=== PATIENT | male | born 1935 | race Caucasian/White ===

== ENCOUNTER 2018-04-19 07:03 | Day surgery (SDC) | payer MEDICARE, MEDICAID ==
[2018-04-11 14:16] LABS: BASOPHILS % (AUTO) 0.5 % (0-1); EOSINOPHILS # (AUTO) 0.2 X10'3 (0-0.9); EOSINOPHILS % (AUTO) 2.8 % (0-6); LYMPHOCYTES # (AUTO) 1.9 X10'3 (1.1-4.8); LYMPHOCYTES % (AUTO) 23.4 % (21-51); MEAN PLATELET VOLUME 9.9 FL (7.4-10.4); MONOCYTES # (AUTO) 0.7 X10'3 (0-0.9); MONOCYTES % (AUTO) 9.1 % (2-12); NEUTROPHILS # (AUTO) 5.1 X10'3 (1.8-7.7); NEUTROPHILS % (AUTO) 64.2 % (42-75); PRE OP HEMATOCRIT 42.3 % (42.0-52.0); PRE OP HEMOGLOBIN 14.4 g/dL (14.0-17.9); PRE OP PLATELET COUNT 219 X10'3 (140-440); RED BLOOD COUNT 4.23 X10'6 (4.70-6.10); RED CELL DISTRIBUTION WIDTH 13.4 % (11.5-14.5)
[2018-04-11 14:19] LABS: HEMOGLOBIN A1C 8.3 % (4.5-6.2)
[2018-04-11 14:24] LABS: ALBUMIN 3.6 G/DL (3.4-5.0); ALKALINE PHOSPHATASE 70 IU/L (46-116); BLOOD UREA NITROGEN 49 MG/DL (7-18); BUN/CREATININE RATIO 20.9 (5.4-32.0); CALCIUM 8.6 MG/DL (8.5-10.1); CHLORIDE 104 MMOL/L (99-107); CREATININE 2.34 MG/DL (0.60-1.10); PRE OP ALT 44 U/L (30-65); PRE OP ANION GAP 11 (8-16); PRE OP AST 28 U/L (10-37); PRE OP BILIRUB, TOTAL 0.6 MG/DL (0.0-1.0); PRE OP GLUCOSE 136 MG/DL (70-104); PRE OP POTASSIUM 3.6 MMOL/L (3.4-5.1); PRE OP SODIUM 141 MMOL/L (135-145); TOTAL CARBON DIOXIDE 25.7 MMOL/L (24-32); TOTAL PROTEIN 7.2 G/DL (6.4-8.2); eGFR 27 ML/MIN
[2018-04-11 14:29] LABS: PRE OP INR 1.2 INR; PRE OP PROTIME 11.6 SECONDS (9.0-12.0)
[~2018-04-19] VITALS: Ht 170.2 cm; Wt 108.9 kg
[~2018-04-19 07:03] MED LIST: AMIO200T27 PO; APIX5TAB3 PO; ATOR40TA PO; CARV-50 PO; DOCUMENT DATE & TIME OF BETA-BLOCKER PO ONE; LISI40TA4 PO; METF-436 PO; TRIA1TAB5 PO; ceFAZolin inj. 2,000 MG in dextrose 5%-water 100 ML IV ONE; famotidine 20mg tablet PO ONE; ringers solution, lacted 1,000 ML IV SCH
[2018-04-19] MEDS ORDERED: LIDOcaine 1% (10mg/ml) 2ml vial ONE (07:57)
[2018-04-19 08:22] VITALS: BP 158/43
[2018-04-19 08:25] VITALS: BP 158/76
[2018-04-19] MEDS ORDERED: LIDOcaine 0.5% (5mg/ml) 50ml vial ONE (08:50)
[2018-04-19] MEDS ORDERED: BUPIVAcaine/PF 2.5mg/ml (0.25%) 10ml vial ONE (09:31)
[2018-04-19] MEDS ORDERED: midazolam 2 mg/2 ml injection ONE (09:40)
[2018-04-19] MEDS ORDERED: fentaNYL/PF 50MCG/1 ML 2ML syringe ONE (09:40)
[2018-04-19 10:10] VITALS: BP 123/56
--- NOTE | 2018-04-19 10:10 | NUR ---
Received from OR via BED, accompanied by Anesthesiologist DR SINCLAIR and report given by Anesthesiolgist. PATIENT A&OX4, DENIES PAIN, V/S WNL, NEUROVASCULAR CHECKS INTACT, 20G PIV LUE, SCD ON, DRESSING TO RIGHT WRIST CDI ELEVATED WITH ICEBAG APPLIED.
[2018-04-19 10:20] VITALS: BP 122/63
[2018-04-19 10:30] VITALS: BP 109/53
[2018-04-19 10:40] VITALS: BP 101/56
--- NOTE | 2018-04-19 10:40 | NUR ---
PATIENT A&OX4, DENIES PAIN, V/S WNL, NEUROVASCULAR CHECKS INTACT, 20G PIV LUE D/C, SCD OFF, DRESSING TO RIGHT WRIST CDI ELEVATED WITH ICEBAG APPLIED. I HAVE REVIEWED D/C INSTRUCTIONS WITH PATIENT AND FAMILY AND THEY HAVE VERBALIZED UNDERSTANDING. PATIENT D/C HOME WITH ALL BELONGINGS AND FAMILY GAVE TRANSPORT HOME.
== END 2018-04-19 10:40 | disposition home or self-care (01) ==
LOC: PAS 07:03
PROVIDERS: ATTEND Orthopaedic Surgery Hand Surgery
DX: G56.03 Carpal tunnel syndrome, bilateral upper limbs (principal); E11.9 Type 2 diabetes mellitus without complications; Z79.899 Other long term (current) drug therapy; Z96.659 Presence of unspecified artificial knee joint; Z95.5 Presence of coronary angioplasty implant and graft; Z79.84 Long term (current) use of oral hypoglycemic drugs
CPT/HCPCS: 36415; 64721; 80053; 82948; 83036; 85025; 85610; 85730; A6222; J0690; J2001; J2250; J3010; J3490; J7060; J7120

== ENCOUNTER 2023-12-31 12:03 | Inpatient (IN) | payer MEDICARE, MEDICAID ==
[~2023-12-31] VITALS: Ht 167.6 cm; Wt 98.7 kg
[~2023-12-31 12:03] MED LIST changes: +AMI200T PO; -AMIO200T27 PO; +ASPI81TA53 PO; -CARV-50 PO; +CARV3.122 PO; +CHOL100017; +CYAN500T71 PO; +DOCU100C40 PO; -DOCUMENT DATE & TIME OF BETA-BLOCKER PO ONE; +FERR325T29 PO; +GLUCOSAMINE; +HYDR-3972 PO; -LISI40TA4 PO; -METF-436 PO; +MULTIVITAMIN; -TRIA1TAB5 PO; -ceFAZolin inj. 2,000 MG in dextrose 5%-water 100 ML IV ONE; -famotidine 20mg tablet PO ONE; -ringers solution, lacted 1,000 ML IV SCH
[2023-12-31 12:46] LABS: BASOPHILS % (AUTO) 0.2 % (0-1); EOSINOPHILS % (AUTO) 0 % (0-6); HEMATOCRIT 25.6 % (42.0-52.0); HEMOGLOBIN 8.4 g/dl (14.0-17.9); LYMPHOCYTES # (AUTO) 1.5 X10'3 (1.1-4.8); LYMPHOCYTES % (AUTO) 13.5 % (21-51); MEAN CORPUSCULAR HEMOGLOBIN 34.2 PG (27.0-31.0); MEAN CORPUSCULAR HGB CONC 32.9 g/dL (33.0-36.5); MEAN CORPUSCULAR VOLUME 103.9 FL (78-98); MEAN PLATELET VOLUME 8.9 FL (7.4-10.4); MONOCYTES # (AUTO) 0.9 X10'3 (0-0.9); MONOCYTES % (AUTO) 8.2 % (2-12); NEUTROPHILS # (AUTO) 8.5 X10'3 (1.8-7.7); NEUTROPHILS % (AUTO) 78.1 % (42-75); PLATELET COUNT 248 X10'3 (140-440); RED BLOOD COUNT 2.46 X10'6 (4.70-6.10); RED CELL DISTRIBUTION WIDTH 20.8 % (11.5-14.5); WHITE BLOOD COUNT 10.9 X10'3 (4.5-11.0)
[2023-12-31 13:04] LABS: ALANINE AMINOTRANSFERASE 11 U/L (12-78); ALBUMIN 2.8 G/DL (3.4-5.0); ALBUMIN/GLOBULIN RATIO 0.9 (1.1-1.5); ALKALINE PHOSPHATASE 102 IU/L (46-116); ANION GAP 11 (8-16); ASPARTATE AMINO TRANSFERASE 26 U/L (10-37); BILIRUBIN,TOTAL 1.6 MG/DL (0.1-1.0); BLOOD UREA NITROGEN 32 MG/DL (7-18); BUN/CREATININE RATIO 17.2 (10.0-20.0); CALCIUM 8.3 MG/DL (8.5-10.1); CHLORIDE 104 MMOL/L (99-107); CREATININE 1.86 MG/DL (0.60-1.10); GLUCOSE 112 MG/DL (70-104); POTASSIUM 3.9 MMOL/L (3.5-5.1); SODIUM 139 MMOL/L (135-145); TOTAL CARBON DIOXIDE 23.9 MMOL/L (24-32); TOTAL PROTEIN 5.9 G/DL (6.4-8.2); eCRCL 25 ML/MIN; eGFR 34 ML/MIN
[2023-12-31 13:07] LABS: PLATELET ESTIMATE NORMAL
[2023-12-31 13:08] LABS: ACANTHOCYTES FEW; ANISOCYTOSIS 3+; BURR CELLS FEW; HYPOCHROMASIA 1+; POLYCHROMASIA FEW; TARGET CELLS FEW
[2023-12-31 13:14] LABS: PRO BRAIN NATRIURETIC PEPTIDE 1533 PG/ML (0-450)
[2023-12-31] MEDS ORDERED: HYDROcodone/acetaminophen 10/325mg tab PO PRN (17:40)
[2023-12-31] MEDS ORDERED: potassium Cl 20 mEq SR tablet PO PRN (17:40)
[2023-12-31] MEDS ORDERED: normal saline 1000ml 1,000 ML IV ONE (17:40)
[2023-12-31] MEDS ORDERED: ondansetron/PF 4mg/2ml inj IV PRN (17:40)
[2023-12-31] MEDS ORDERED: normal saline 1000ml 1,000 ML IV SCH (17:40)
[2023-12-31] MEDS ORDERED: magnesium sulf-water 2g/50mL 50 ML IV PRN (17:40)
[2023-12-31] MEDS ORDERED: bisacodyl 10mg suppository rectal RC PRN (17:40)
[2023-12-31] MEDS ORDERED: HYDROcodone/acetaminophen 5mg/325mg tablet PO PRN (17:40)
[2023-12-31] MEDS ORDERED: potassium Cl 40MEQ/1/2NS 520ml 520 ML IV PRN (17:40)
[2023-12-31] MEDS ORDERED: mag hydrox/Alum hydrox/simeth 30ml oral suspension PO PRN (17:40)
[2023-12-31] MEDS ORDERED: acetaminophen 325mg tablet PO PRN (17:40)
[2023-12-31] MEDS ORDERED: magnesium sulf-water 4G/100mL 100 ML IV PRN (17:40)
[2023-12-31 18:24] LABS: HEMATOCRIT 23.7 % (42.0-52.0); HEMOGLOBIN 7.8 g/dl (14.0-17.9); MEAN CORPUSCULAR HEMOGLOBIN 34.2 PG (27.0-31.0); MEAN CORPUSCULAR VOLUME 103.7 FL (78-98); MEAN PLATELET VOLUME 8.4 FL (7.4-10.4); PLATELET COUNT 237 X10'3 (140-440); RED BLOOD COUNT 2.29 X10'6 (4.70-6.10); WHITE BLOOD COUNT 11.2 X10'3 (4.5-11.0)
[2023-12-31] MEDS ORDERED: glucagon, human recombinant 1mg kit SUBCUT PRN (18:45)
[2023-12-31] MEDS ORDERED: DEXTROSE 15 GM of carb/4 tabs (each vial/BOTTLE has 4 tablets) PO PRN ×2 (18:45)
[2023-12-31] MEDS ORDERED: dextrose 50%-water 50ml dispensing syringe IV PRN ×2 (18:45)
[2023-12-31 20:00] VITALS: BP_SYST 129; BP_SYST 136; BP_DIAS 48; BP_DIAS 52; PULSE 65; PULSE 73
[2023-12-31] MEDS: K and/or MAG REPLACEMENT MC SCH (20:00)
[2023-12-31] MEDS: INSULIN LISPRO 100 UNIT/ML INSULN.PEN MULTI-DOSE SQ SCH (21:00)
[2023-12-31 21:25] VITALS: BP 137/56; PULSE 68; RESP 16; TEMP 97.9; O2SAT 96
[2023-12-31 22:00] VITALS: BP 131/52; PULSE 65; RESP 13; RESP 14; TEMP 97.9; O2SAT 97
[2023-12-31] MEDS: docusate sod 100mg capsule PO SCH (22:12)
[2023-12-31 22:34] VITALS: BP 131/52; PULSE 65; RESP 14; TEMP 97.9
[2023-12-31 23:00] VITALS: BP 133/55; PULSE 64; RESP 23; TEMP 97.7
[2023-12-31] MEDS ORDERED: FURO20TA4 PO (23:34)
[2023-12-31] MEDS ORDERED: TRIA1TAB5 PO (23:34)
[2024-01-01] VITALS (13 sets, daily range): BP systolic 120–147; BP diastolic 45–73; PULSE 60–76; RESP 13–18; TEMP 97.5–98.4; O2SAT 95–99
[2024-01-01] MEDS ORDERED: EMPA25TA PO (01:59)
[2024-01-01 03:42] LABS: HEMATOCRIT 27.8 % (42.0-52.0); HEMOGLOBIN 9.2 g/dl (14.0-17.9); MEAN CORPUSCULAR HEMOGLOBIN 33.5 PG (27.0-31.0); MEAN CORPUSCULAR HGB CONC 32.9 g/dL (33.0-36.5); MEAN CORPUSCULAR VOLUME 101.6 FL (78-98); MEAN PLATELET VOLUME 8.1 FL (7.4-10.4); PLATELET COUNT 223 X10'3 (140-440); RED BLOOD COUNT 2.74 X10'6 (4.70-6.10); RED CELL DISTRIBUTION WIDTH 21.6 % (11.5-14.5); WHITE BLOOD COUNT 10.5 X10'3 (4.5-11.0)
[2024-01-01 03:58] LABS: ALANINE AMINOTRANSFERASE 17 U/L (12-78); ALBUMIN 2.7 G/DL (3.4-5.0); ALBUMIN/GLOBULIN RATIO 0.9 (1.1-1.5); ALKALINE PHOSPHATASE 103 IU/L (46-116); ANION GAP 8 (8-16); ASPARTATE AMINO TRANSFERASE 24 U/L (10-37); BILIRUBIN,TOTAL 1.6 MG/DL (0.1-1.0); BLOOD UREA NITROGEN 31 MG/DL (7-18); BUN/CREATININE RATIO 18.8 (10.0-20.0); CALCIUM 8.2 MG/DL (8.5-10.1); CHLORIDE 106 MMOL/L (99-107); CREATININE 1.65 MG/DL (0.60-1.10); GLUCOSE 86 MG/DL (70-104); MAGNESIUM 2.1 MG/DL (1.5-2.4); POTASSIUM 3.8 MMOL/L (3.5-5.1); SODIUM 140 MMOL/L (135-145); TOTAL CARBON DIOXIDE 25.7 MMOL/L (24-32); TOTAL PROTEIN 5.8 G/DL (6.4-8.2); eCRCL 28 ML/MIN; eGFR 40 ML/MIN
[2024-01-01 10:25] LABS: HEMATOCRIT 28.2 % (42.0-52.0); HEMOGLOBIN 9.4 g/dl (14.0-17.9); MEAN CORPUSCULAR HEMOGLOBIN 33.9 PG (27.0-31.0); MEAN CORPUSCULAR HGB CONC 33.4 g/dL (33.0-36.5); MEAN CORPUSCULAR VOLUME 101.6 FL (78-98); MEAN PLATELET VOLUME 8.6 FL (7.4-10.4); PLATELET COUNT 235 X10'3 (140-440); RED BLOOD COUNT 2.78 X10'6 (4.70-6.10); RED CELL DISTRIBUTION WIDTH 22.6 % (11.5-14.5); WHITE BLOOD COUNT 10.2 X10'3 (4.5-11.0)
[2024-01-01 14:14] LABS: BASOPHILS # (AUTO) 0.1 X10'3 (0-0.2); BASOPHILS % (AUTO) 0.7 % (0-1); EOSINOPHILS % (AUTO) 0.4 % (0-6); HEMATOCRIT 29.1 % (42.0-52.0); HEMOGLOBIN 9.6 g/dl (14.0-17.9); LYMPHOCYTES # (AUTO) 1.2 X10'3 (1.1-4.8); LYMPHOCYTES % (AUTO) 12.9 % (21-51); MEAN CORPUSCULAR HEMOGLOBIN 33.4 PG (27.0-31.0); MEAN CORPUSCULAR HGB CONC 32.9 g/dL (33.0-36.5); MEAN CORPUSCULAR VOLUME 101.5 FL (78-98); MEAN PLATELET VOLUME 8.6 FL (7.4-10.4); MONOCYTES # (AUTO) 1.1 X10'3 (0-0.9); MONOCYTES % (AUTO) 11.9 % (2-12); NEUTROPHILS # (AUTO) 7.1 X10'3 (1.8-7.7); NEUTROPHILS % (AUTO) 74.1 % (42-75); PLATELET COUNT 243 X10'3 (140-440); RED BLOOD COUNT 2.86 X10'6 (4.70-6.10); WHITE BLOOD COUNT 9.5 X10'3 (4.5-11.0)
[2024-01-01 14:17] LABS: GLUCOSE,BODY FLUID 121 MG/DL; LDH,BODY FLUID 195 U/L; TOTAL PROTEIN,BODY FLUID 2.9 G/DL
[2024-01-01 14:23] LABS: BFSOURCE LEFT PLEURAL FLD
[2024-01-01] MEDS ORDERED: docusate sod 100mg capsule PO PRN (14:35)
[2024-01-01 15:01] LABS: BF WBC COUNT 1125 /CU MM (0-1000); BFAPPEAR BLOODY; BFCOLOR RED; BFSOURCE LEFT PLEURAL FLD; BFVOLUME 22 ML
[2024-01-01 15:02] LABS: BF MESOTHELIAL CELLS FEW; BF RBC COUNT 437500 /CU MM; LYMPHOCYTES,BODY FLUID 68 %; MONOCYTES,BODY FLUID 10 %; NEUTROPHILS,BODY FLUID 22 %
[2024-01-01 15:05] LABS: ACANTHOCYTES FEW; ANISOCYTOSIS 3+; ELLIPTOCYTES FEW; PLATELET ESTIMATE NORMAL; TOTAL CELLS COUNTED 100
[2024-01-01 15:06] LABS: HYPERSEGMENTED NEUTROPHILS 2+; POLYCHROMASIA FEW; STOMATOCYTES 1+
[2024-01-01] MEDS: amiodarone 200mg tablet PO SCH (16:41)
[2024-01-01] MEDS ORDERED: POTA-192 PO (17:35)
[2024-01-01 18:28] LABS: HEMATOCRIT 27.9 % (42.0-52.0); HEMOGLOBIN 9.2 g/dl (14.0-17.9); MEAN CORPUSCULAR HEMOGLOBIN 33.5 PG (27.0-31.0); MEAN CORPUSCULAR HGB CONC 32.9 g/dL (33.0-36.5); MEAN CORPUSCULAR VOLUME 101.9 FL (78-98); MEAN PLATELET VOLUME 8.4 FL (7.4-10.4); PLATELET COUNT 229 X10'3 (140-440); RED BLOOD COUNT 2.74 X10'6 (4.70-6.10); RED CELL DISTRIBUTION WIDTH 22.4 % (11.5-14.5); WHITE BLOOD COUNT 10.6 X10'3 (4.5-11.0)
[2024-01-01] MEDS: carVEDilol 3.125mg tablet PO SCH (20:21)
[2024-01-01] MEDS: acetaminophen 325mg tablet PO PRN (22:23)
[2024-01-02] VITALS (8 sets, daily range): BP systolic 102–166; BP diastolic 50–71; PULSE 60–72; RESP 12–22; TEMP 96.8–98.5; O2SAT 95–99
[2024-01-02 02:31] LABS: ALANINE AMINOTRANSFERASE 22 U/L (12-78); ALBUMIN 2.8 G/DL (3.4-5.0); ALBUMIN/GLOBULIN RATIO 0.8 (1.1-1.5); ALKALINE PHOSPHATASE 114 IU/L (46-116); ANION GAP 9 (8-16); ASPARTATE AMINO TRANSFERASE 27 U/L (10-37); BILIRUBIN,TOTAL 1.1 MG/DL (0.1-1.0); BLOOD UREA NITROGEN 25 MG/DL (7-18); BUN/CREATININE RATIO 18.1 (10.0-20.0); CALCIUM 8.2 MG/DL (8.5-10.1); CHLORIDE 107 MMOL/L (99-107); CREATININE 1.38 MG/DL (0.60-1.10); GLUCOSE 117 MG/DL (70-104); MAGNESIUM 2.1 MG/DL (1.5-2.4); POTASSIUM 3.5 MMOL/L (3.5-5.1); SODIUM 140 MMOL/L (135-145); TOTAL CARBON DIOXIDE 24.5 MMOL/L (24-32); TOTAL PROTEIN 6.1 G/DL (6.4-8.2); eCRCL 33 ML/MIN; eGFR 49 ML/MIN
[2024-01-02 02:43] LABS: HEMATOCRIT 28.4 % (42.0-52.0); HEMOGLOBIN 9.3 g/dl (14.0-17.9); MEAN CORPUSCULAR HEMOGLOBIN 33.4 PG (27.0-31.0); MEAN CORPUSCULAR HGB CONC 32.9 g/dL (33.0-36.5); MEAN CORPUSCULAR VOLUME 101.6 FL (78-98); MEAN PLATELET VOLUME 8.9 FL (7.4-10.4); PLATELET COUNT 229 X10'3 (140-440); RED CELL DISTRIBUTION WIDTH 21.8 % (11.5-14.5); WHITE BLOOD COUNT 9.5 X10'3 (4.5-11.0)
[2024-01-02] MEDS: atorvastatin 20mg tablet PO SCH (08:16)
[2024-01-02] MEDS: aspirin 81mg tab.chew PO SCH (08:16)
[2024-01-02 11:42] LABS: HEMOGLOBIN 9.7 g/dl (14.0-17.9); MEAN CORPUSCULAR HGB CONC 33.4 g/dL (33.0-36.5); MEAN CORPUSCULAR VOLUME 101.9 FL (78-98); MEAN PLATELET VOLUME 8.5 FL (7.4-10.4); PLATELET COUNT 229 X10'3 (140-440); RED BLOOD COUNT 2.85 X10'6 (4.70-6.10); RED CELL DISTRIBUTION WIDTH 21.5 % (11.5-14.5); WHITE BLOOD COUNT 8.3 X10'3 (4.5-11.0)
[2024-01-02] MEDS: ferrous sulfate 325mg tablet PO SCH (15:49)
[2024-01-02 18:14] LABS: HEMOGLOBIN 9.2 g/dl (14.0-17.9); MEAN CORPUSCULAR HEMOGLOBIN 33.8 PG (27.0-31.0); MEAN CORPUSCULAR HGB CONC 32.8 g/dL (33.0-36.5); MEAN CORPUSCULAR VOLUME 103.2 FL (78-98); MEAN PLATELET VOLUME 8.3 FL (7.4-10.4); PLATELET COUNT 226 X10'3 (140-440); RED BLOOD COUNT 2.71 X10'6 (4.70-6.10); RED CELL DISTRIBUTION WIDTH 21.4 % (11.5-14.5); WHITE BLOOD COUNT 8.1 X10'3 (4.5-11.0)
[2024-01-03 02:00] VITALS: BP 127/79; PULSE 75; RESP 16; TEMP 96.6; O2SAT 98
[2024-01-03 02:49] LABS: HEMATOCRIT 28.5 % (42.0-52.0); HEMOGLOBIN 9.2 g/dl (14.0-17.9); MEAN CORPUSCULAR HEMOGLOBIN 33.1 PG (27.0-31.0); MEAN CORPUSCULAR HGB CONC 32.1 g/dL (33.0-36.5); MEAN CORPUSCULAR VOLUME 103.1 FL (78-98); MEAN PLATELET VOLUME 8.7 FL (7.4-10.4); PLATELET COUNT 218 X10'3 (140-440); RED BLOOD COUNT 2.77 X10'6 (4.70-6.10); RED CELL DISTRIBUTION WIDTH 21.7 % (11.5-14.5); WHITE BLOOD COUNT 7.9 X10'3 (4.5-11.0)
[2024-01-03 02:56] LABS: ALANINE AMINOTRANSFERASE 18 U/L (12-78); ALBUMIN 2.8 G/DL (3.4-5.0); ALBUMIN/GLOBULIN RATIO 0.9 (1.1-1.5); ALKALINE PHOSPHATASE 116 IU/L (46-116); ANION GAP 7 (8-16); ASPARTATE AMINO TRANSFERASE 27 U/L (10-37); BILIRUBIN,TOTAL 1.2 MG/DL (0.1-1.0); BLOOD UREA NITROGEN 18 MG/DL (7-18); BUN/CREATININE RATIO 16.8 (10.0-20.0); CALCIUM 8.4 MG/DL (8.5-10.1); CHLORIDE 107 MMOL/L (99-107); CREATININE 1.07 MG/DL (0.60-1.10); GLUCOSE 90 MG/DL (70-104); MAGNESIUM 1.9 MG/DL (1.5-2.4); POTASSIUM 3.3 MMOL/L (3.5-5.1); SODIUM 141 MMOL/L (135-145); TOTAL CARBON DIOXIDE 26.8 MMOL/L (24-32); TOTAL PROTEIN 5.9 G/DL (6.4-8.2); eCRCL 43 ML/MIN; eGFR 65 ML/MIN
[2024-01-03] MEDS: potassium Cl 20 mEq SR tablet PO PRN (07:48)
[2024-01-03 08:00] VITALS: RESP 20; O2SAT 97
[2024-01-03 10:00] VITALS: BP 117/57; PULSE 64; RESP 20; O2SAT 97
[2024-01-03 10:08] LABS: HEMATOCRIT 28.8 % (42.0-52.0); HEMOGLOBIN 9.4 g/dl (14.0-17.9); MEAN CORPUSCULAR HEMOGLOBIN 33.8 PG (27.0-31.0); MEAN CORPUSCULAR HGB CONC 32.7 g/dL (33.0-36.5); MEAN CORPUSCULAR VOLUME 103.4 FL (78-98); MEAN PLATELET VOLUME 8.3 FL (7.4-10.4); PLATELET COUNT 221 X10'3 (140-440); RED BLOOD COUNT 2.78 X10'6 (4.70-6.10); RED CELL DISTRIBUTION WIDTH 21.1 % (11.5-14.5); WHITE BLOOD COUNT 7.5 X10'3 (4.5-11.0)
[2024-01-03] MEDS: FLU VACC TS2024-25(6MOS UP)/PF 45 MCG/0.5 ML SYRINGE IMVAC ONE (13:15)
== END 2024-01-03 13:05 | disposition home or self-care (01) | DRG 981 ==
LOC: ER 12:04 → PCU 3S 17:46
PROVIDERS: ADMIT Family Medicine; ATTEND Family Medicine
PROC: 30233N1 Transfusion of Nonautologous Red Blood Cells into Peripheral Vein, Percutaneous Approach (ICD-10-PCS; principal; 2023-12-31)
PROC: 0W9B4ZZ Drainage of Left Pleural Cavity, Percutaneous Endoscopic Approach (ICD-10-PCS; 2024-01-01)
PROC: 3E02340 Introduction of Influenza Vaccine into Muscle, Percutaneous Approach (ICD-10-PCS; 2024-01-01)
DX: D62 Acute posthemorrhagic anemia (principal); I21.A1 Myocardial infarction type 2; K68.3 Retroperitoneal hematoma; N17.0 Acute kidney failure with tubular necrosis; J94.2 Hemothorax; I13.0 Hypertensive heart and chronic kidney disease with heart failure and stage 1 through stage 4 chronic kidney disease, or unspecified chronic kidney disease; D73.5 Infarction of spleen; R58 Hemorrhage, not elsewhere classified; S30.1XXA Contusion of abdominal wall, initial encounter; X58.XXXA Exposure to other specified factors, initial encounter; I25.10 Atherosclerotic heart disease of native coronary artery without angina pectoris; I48.0 Paroxysmal atrial fibrillation; E11.22 Type 2 diabetes mellitus with diabetic chronic kidney disease; Z96.653 Presence of artificial knee joint, bilateral; I95.1 Orthostatic hypotension; I50.9 Heart failure, unspecified; N18.9 Chronic kidney disease, unspecified; E78.5 Hyperlipidemia, unspecified; Z95.1 Presence of aortocoronary bypass graft; Z79.01 Long term (current) use of anticoagulants; Z79.82 Long term (current) use of aspirin; Z79.899 Other long term (current) drug therapy; Y92.89 Other specified places as the place of occurrence of the external cause; I25.2 Old myocardial infarction; Y93.89 Activity, other specified; Y99.8 Other external cause status; Z88.5 Allergy status to narcotic agent; Z95.3 Presence of xenogenic heart valve
CPT/HCPCS: 32555; 36415; 36430; 71045; 74176; 80053; 82945; 82948; 83615; 83735; 83880; 83986; 84157; 84484; 85007; 85008; 85025; 85027; 86885; 86900; 86901; 86920; 87070; 87081; 89051; 90686; 93005; 93308; 99291; G0378; J1815; P9016

== ENCOUNTER 2024-01-08 11:40 | Outpatient (CLI) | payer MEDICARE, MEDICAID ==
[~2024-01-08 11:40] MED LIST changes: -APIX5TAB3 PO; +EMPA25TA PO; +POTA-192 PO
[2024-01-08 12:15] LABS: BASOPHILS # (AUTO) 0.1 X10'3 (0-0.2); EOSINOPHILS # (AUTO) 0.1 X10'3 (0-0.9); EOSINOPHILS % (AUTO) 0.9 % (0-6); HEMOGLOBIN 11.7 g/dl (14.0-17.9); LYMPHOCYTES # (AUTO) 1.5 X10'3 (1.1-4.8); MEAN CORPUSCULAR HGB CONC 32.5 g/dL (33.0-36.5); MEAN CORPUSCULAR VOLUME 104.4 FL (78-98); MEAN PLATELET VOLUME 8.8 FL (7.4-10.4); MONOCYTES # (AUTO) 0.9 X10'3 (0-0.9); MONOCYTES % (AUTO) 11.8 % (2-12); NEUTROPHILS # (AUTO) 5.3 X10'3 (1.8-7.7); NEUTROPHILS % (AUTO) 67.3 % (42-75); PLATELET COUNT 298 X10'3 (140-440); RED BLOOD COUNT 3.45 X10'6 (4.70-6.10); RED CELL DISTRIBUTION WIDTH 21.1 % (11.5-14.5); WHITE BLOOD COUNT 7.9 X10'3 (4.5-11.0)
== END 2024-01-08 23:59 | disposition home or self-care (01) ==
LOC: LAB 11:40
PROVIDERS: ATTEND Thoracic Surgery (Cardiothoracic Vascular Surgery)
DX: Z00.00 Encounter for general adult medical examination without abnormal findings (principal); D64.89 Other specified anemias
CPT/HCPCS: 85025

== ENCOUNTER 2024-04-08 05:32 | Emergency (ER) | payer MEDICARE, MEDICAID ==
[~2024-04-08] VITALS: Ht 175.3 cm; Wt 91.6 kg
[2024-04-08 05:56] VITALS: TEMP 97.7
[2024-04-08 06:09] LABS: BASOPHILS % (AUTO) 0.4 % (0-1); EOSINOPHILS # (AUTO) 0.1 X10'3 (0-0.9); EOSINOPHILS % (AUTO) 0.6 % (0-6); HEMATOCRIT 41.4 % (42.0-52.0); HEMOGLOBIN 13.6 g/dl (14.0-17.9); LYMPHOCYTES # (AUTO) 1.1 X10'3 (1.1-4.8); MEAN CORPUSCULAR HEMOGLOBIN 33.4 PG (27.0-31.0); MEAN CORPUSCULAR HGB CONC 32.7 g/dL (33.0-36.5); MEAN PLATELET VOLUME 10.1 FL (7.4-10.4); MONOCYTES % (AUTO) 8.6 % (2-12); NEUTROPHILS # (AUTO) 9.2 X10'3 (1.8-7.7); NEUTROPHILS % (AUTO) 80.4 % (42-75); PLATELET COUNT 183 X10'3 (140-440); RED BLOOD COUNT 4.06 X10'6 (4.70-6.10); RED CELL DISTRIBUTION WIDTH 15.2 % (11.5-14.5); WHITE BLOOD COUNT 11.4 X10'3 (4.5-11.0)
[2024-04-08] MEDS ORDERED: LINA5TAB4 PO (06:12)
[2024-04-08] MEDS ORDERED: APIX5TAB3 PO (06:12)
[2024-04-08] MEDS ORDERED: LISI20TA28 PO (06:12)
[2024-04-08] MEDS ORDERED: FURO-150 PO (06:12)
[2024-04-08 06:22] LABS: APTT 28 SECONDS (22-32); INR 1.1 INR; PROTHROMBIN TIME 11.2 SECONDS (9.0-12.0)
[2024-04-08 06:36] LABS: ALBUMIN 3.5 G/DL (3.4-5.0); ANION GAP 10 (8-16); BLOOD UREA NITROGEN 16 MG/DL (7-18); BUN/CREATININE RATIO 14.5 (10.0-20.0); CALCIUM 8.8 MG/DL (8.5-10.1); CHLORIDE 104 MMOL/L (99-107); GLUCOSE 191 MG/DL (70-104); POTASSIUM 3.4 MMOL/L (3.5-5.1); SODIUM 140 MMOL/L (135-145); TOTAL CARBON DIOXIDE 26.2 MMOL/L (24-32); eCRCL 46 ML/MIN; eGFR 63 ML/MIN
[2024-04-08] MEDS ORDERED: DOCU-392 PO (07:03)
[2024-04-08] MEDS ORDERED: CHOL10008 PO (07:03)
[2024-04-08] MEDS ORDERED: CYAN50007 PO (07:03)
[2024-04-08] MEDS ORDERED: FERR325T28 PO (07:03)
[2024-04-08] MEDS ORDERED: ASPI-1265 PO (07:03)
[2024-04-08] MEDS ORDERED: POLY119P2 PO (07:03)
[2024-04-08] MEDS ORDERED: HYDR-3973 PO (07:03)
[2024-04-08] MEDS ORDERED: [UNRECOGNIZED DRUG - CODE] PO (07:03)
[2024-04-08] MEDS ORDERED: EMPA25TA PO (07:03)
[2024-04-08 08:26] LABS: PRO BRAIN NATRIURETIC PEPTIDE 2468 PG/ML (0-450)
[2024-04-08 10:45] VITALS: BP 146/76; PULSE 71; RESP 20; O2SAT 95
== END 2024-04-08 12:00 | disposition home or self-care (01) ==
LOC: ER 05:33
DX: I50.9 Heart failure, unspecified (principal); I25.10 Atherosclerotic heart disease of native coronary artery without angina pectoris; Z88.5 Allergy status to narcotic agent; Z79.82 Long term (current) use of aspirin; Z95.1 Presence of aortocoronary bypass graft
CPT/HCPCS: 36415; 80048; 83880; 84484; 85025; 85610; 85730; 93005; 99284

== ENCOUNTER 2024-08-24 10:55 | Emergency (ER) | payer MEDICARE, MEDICAID ==
[~2024-08-24] VITALS: Ht 170.2 cm; Wt 75.2 kg
[~2024-08-24 10:55] MED LIST changes: -AMI200T PO; +ASPI-1265 PO; -ASPI81TA53 PO; -CHOL100017; +CHOL25CA2 PO; +CYAN50007 PO; -CYAN500T71 PO; +DOCU-392 PO; -DOCU100C40 PO; +FERR325T28 PO; -FERR325T29 PO; +FURO-150 PO; -GLUCOSAMINE; -HYDR-3972 PO; +HYDR-3973 PO; -MULTIVITAMIN; +POLY119P2 PO; +[UNRECOGNIZED DRUG - CODE] PO
--- NOTE | 2024-08-24 11:35 | Physician Documentation ---
History of Present Illness ~ Chief Complaint: Nose bleed Stated Complaint: NOSE BLEED Time Seen by MD: 11:35 Primary Medical Doctor: Pablo Mode of Arrival: POV, Ambulatory HPI This an 88-year-old male who was brought to the emergency department for a report of seven days of primarily right nasal bleeding. He reports that he has been seen at the [facility] Department and also of the [facility] [place] [facility]. He was on aspirin, but has since stopped this. Reports that he takes no other blood thinners. No trauma prior to the onset of nosebleed. He does report that he feels somewhat dizzy and weak, and that blood has come out of both sides of the nose now, and also of the right eye. Medication Reconciliation Allergies: Coded Allergies: morphine (Verified Allergy, Unknown, CONFUSION, 08/24/24) Scheduled Aspirin (Aspirin), 1 TAB PO DAILY, (Reported) Atorvastatin Calcium* (Lipitor*), 1 TABLET PO DAILY, (Reported) Carvedilol (Carvedilol), 1 TAB PO BID, (Reported) Cholecalciferol (Vitamin D3) (Vitamin D3), 1 CAP PO DAILY, (Reported) Cyanocobalamin (Vitamin B-12) (Vitamin B-12), 1 TAB PO BID, (Reported) Empagliflozin (Jardiance), 1 TAB PO DAILY, (Reported) Ferrous Sulfate* (Ferrous Sulfate*), 1 TAB PO MWF, (Reported) Furosemide (Lasix), 1 TAB PO DAILY, (Reported) Glucosamine Sulfate (Glucosamine Sulfate), 1,500 MG PO BID, (Reported) Potassium Chloride (Klor-Con), 2 TAB PO BID, (Reported) Scheduled PRN Docusate Sodium (Docusate Sodium), 1 CAP PO HS PRN for constipation, (Reported) Hydrocodone Bit/Acetaminophen (Hydrocodone-Apap 10-325 Tablet), 1 TAB PO Q4H PRN for moderate pain, (Reported) Polyethylene Glycol 3350 (Miralax), 17 GM PO PRN PRN for constipation, (Reported) Past Medical History Past Medical History: Angina, Coronary Artery Disease Past Surgical History: coronary bypass surgery Patient History: FH: diabetes mellitus Daughter (History of DM) Granddaughter (History of DM) Sister, , Age: 60 years and older, Cause: Cancer MOTHER ( from complications of alcohol), , Age: 40's - 50, Cause: Cirrhosis Alcohol Use: None Drug Use: none Review of Systems ROS As stated above in the HPI, otherwise all systems are reviewed and negative. Physical Exam Vital Signs: Temperature: 97.8, Heart Rate: 52, Respiratory Rate: 18, BP: 135/90, Pulse Oximetry: 99, Weight: 75.200 Oxygen Flow Rate: 0 Procedures Procedures 1330: Patient blew nose well and held pressure x 10 minutes. Cotton ball soaked in afrin and plain 1% lidocaine then placed in each nostril. 1430: Dr. Molina at bedside, places rhino rocket soaked with 500 mg TXA liquid. No active bleeding. Patient tolerated well. Progress Progress Note 1215: Consultation with Dr. Molina who advises that patient should be instructed to blow nose well and then hold nares closed x 10 minutes. Will then plan to evaluate with her at bedside. Results/Orders Results/Orders Orders - [facility] Nose Procedure Set Up (08/24/24 12:18) Completed Orders - [facility] Cbc/Diff (08/24/24 11:55) CMP (08/24/24 11:55) Pt Inr (08/24/24 11:55) Oxymetazoline Nasal Convoy (Afrin Nasal S (08/24/24 12:15) Tranexamic Acid Inj. (Cyklokapron Inj.) (08/24/24 12:15) Lidocaine 1% 30ml Vial (Xylocaine 1% Via (08/24/24 12:54) Vital Signs 08/24/24 08/24/24 10:57 11:29 Temp 97.8 Pulse 52 Resp 18 B/P (MAP) 135/90 Pulse Ox 99 O2 Flow Rate 0 Laboratory Tests Test 08/24/24 12:01 White Blood Count 7.4 Red Blood Count 3.88 L Hemoglobin 13.4 L Hematocrit 39.3 L Mean Corpuscular Volume 101.2 H Mean Corpuscular Hemoglobin 34.6 H Mean Corpuscular Hemoglobin Concent 34.1 Red Cell Distribution Width 14.6 H Platelet Count 191 Mean Platelet Volume 9.9 Neutrophils (%) (Auto) 66.4 Lymphocytes (%) (Auto) 21.0 Monocytes (%) (Auto) 10.1 Eosinophils (%) (Auto) 1.9 Basophils (%) (Auto) 0.6 Neutrophils # (Auto) 4.9 Lymphocytes # (Auto) 1.6 Monocytes # (Auto) 0.7 Eosinophils # (Auto) 0.1 Basophils # (Auto) 0.0 CBC Comment Prothrombin Time 10.8 INR International Normalized Ratio 1.1 Coagulation Comments Sodium Level 145 Potassium Level 3.8 Chloride Level 107 Carbon Dioxide Level 29.6 Anion Gap 8 Blood Urea Nitrogen 22 H Creatinine 1.43 H Estimated GFR/1.73 m2 47 BUN/Creatinine Ratio 15.4 Glucose Level 117 H Calcium Level 8.9 Total Bilirubin 0.6 Aspartate Amino Transf (AST/SGOT) 27 Alanine Aminotransferase (ALT/SGPT) 29 Alkaline Phosphatase 119 H Total Protein 7.2 Albumin 3.4 Globulin 3.8 Albumin/Globulin Ratio 0.9 L Chemistry Comments Medical Decision Making Nose Diff. Dx: Considerations: Include: Abrasion, Anterior nasal bleed, Avulsion, Contusion, Coagulopathy, Fracture-nasal bone, Fracture-septum, Hypertension, Laceration, Posterior nasal bleed, Retained foreign body, Septal h ematoma Additional Comment An 88-year-old male who presents to the emergency department reporting that he has been seen by his primary care provider and also at the [facility] for epistaxis. He had labs done today with no significant anemia identified. Rhino rocket was placed and he was found to have no active bleeding. He is instructed to see PCP in 48 hrs for removal and will be sent home on bactrim. Hemodynamically stable. Departure Time of Disposition: 14:42 Disposition: HOME / SELF CARE / HOMELESS Impression: Primary Impression: Epistaxis Condition: Stable Discharge Instructions: Nosebleed, Adult Additional Instructions: Rhino rocket placed in the right nare. Keep in place, avoiding disruption. See your primary care provider Sunday for removal of the rhino rocket. If they're not comfortable removing it, present to [place] or [facility] ER. Take the Bactrim as prescribed to prevent infection while the rhino rocket is in place. Return if worse. Referrals: NO PRIMARY CARE PROVIDER (PCP) Prescriptions Sulfamethoxazole/Trimethoprim (Bactrim Ds Tablet) 800 Mg-160 Mg Tablet 1 TAB PO Q12H for 5 Days, #10 TAB Prov: [facility] 08/24/24 Education Educated: Patient, Family Educated regarding: diagnosis, treatment, prognosis, need for follow up Signature Scribe Signature: no scribe Attestation: The note accurately reflects work and decisions made by me.Ely Prado NP 08/24/24 11:56 ELY [facility]URES[facility] NP Aug 24, 2024 11:35
[2024-08-24 12:11] LABS: BASOPHILS % (AUTO) 0.6 % (0-1); EOSINOPHILS # (AUTO) 0.1 X10'3 (0-0.9); EOSINOPHILS % (AUTO) 1.9 % (0-6); HEMATOCRIT 39.3 % (42.0-52.0); HEMOGLOBIN 13.4 g/dl (14.0-17.9); LYMPHOCYTES # (AUTO) 1.6 X10'3 (1.1-4.8); MEAN CORPUSCULAR HEMOGLOBIN 34.6 PG (27.0-31.0); MEAN CORPUSCULAR HGB CONC 34.1 g/dL (33.0-36.5); MEAN CORPUSCULAR VOLUME 101.2 FL (78-98); MEAN PLATELET VOLUME 9.9 FL (7.4-10.4); MONOCYTES # (AUTO) 0.7 X10'3 (0-0.9); MONOCYTES % (AUTO) 10.1 % (2-12); NEUTROPHILS # (AUTO) 4.9 X10'3 (1.8-7.7); NEUTROPHILS % (AUTO) 66.4 % (42-75); PLATELET COUNT 191 X10'3 (140-440); RED BLOOD COUNT 3.88 X10'6 (4.70-6.10); RED CELL DISTRIBUTION WIDTH 14.6 % (11.5-14.5); WHITE BLOOD COUNT 7.4 X10'3 (4.5-11.0)
[2024-08-24] MEDS: oxymetazoline 15 ML nasal spray NS ONE (12:15)
[2024-08-24] MEDS: tranexamic acid 100mg/ml inj. TP ONE (12:15)
[2024-08-24 12:22] LABS: INR 1.1 INR; PROTHROMBIN TIME 10.8 SECONDS (9.0-12.0)
[2024-08-24 12:27] LABS: ALANINE AMINOTRANSFERASE 29 U/L (12-78); ALBUMIN 3.4 G/DL (3.4-5.0); ALBUMIN/GLOBULIN RATIO 0.9 (1.1-1.5); ALKALINE PHOSPHATASE 119 IU/L (46-116); ANION GAP 8 (8-16); ASPARTATE AMINO TRANSFERASE 27 U/L (10-37); BILIRUBIN,TOTAL 0.6 MG/DL (0.1-1.0); BLOOD UREA NITROGEN 22 MG/DL (7-18); BUN/CREATININE RATIO 15.4 (10.0-20.0); CALCIUM 8.9 MG/DL (8.5-10.1); CHLORIDE 107 MMOL/L (99-107); CREATININE 1.43 MG/DL (0.60-1.10); GLUCOSE 117 MG/DL (70-104); POTASSIUM 3.8 MMOL/L (3.5-5.1); SODIUM 145 MMOL/L (135-145); TOTAL CARBON DIOXIDE 29.6 MMOL/L (24-32); TOTAL PROTEIN 7.2 G/DL (6.4-8.2); eCRCL 33 ML/MIN; eGFR 47 ML/MIN
[2024-08-24] MEDS: LIDOcaine 1% 30ml preserv. free vial IJ STA (13:33)
[2024-08-24] MEDS ORDERED: SULF1TAB49 PO (14:45)
[2024-08-24] MEDS: sulfamethoxazole/trimethoprim DS (800/160mg) tablet PO ONE (14:58)
[2024-08-24 15:11] VITALS: BP 153/83; PULSE 55; RESP 17; TEMP 97.8; O2SAT 97
== END 2024-08-24 15:00 | disposition home or self-care (01) ==
LOC: ER 10:56
DX: R04.0 Epistaxis (principal); I25.10 Atherosclerotic heart disease of native coronary artery without angina pectoris; Z88.5 Allergy status to narcotic agent; Z88.8 Allergy status to other drugs, medicaments and biological substances; Z95.1 Presence of aortocoronary bypass graft; Z79.82 Long term (current) use of aspirin
CPT/HCPCS: 30901; 36415; 80053; 85025; 85610; 96360; 99284